=== PATIENT | female | born 1945 | race Caucasian/White ===

== ENCOUNTER 2017-09-16 13:10 | Emergency (ER) | payer OTHER ==
[2017-09-16 13:42] VITALS: BP 134/66
[2017-09-16] MEDS ORDERED: DOXYcycline CAP(*) 100 MG PO ONE (14:00)
--- NOTE | 2017-09-16 14:07 | UC ---
Skin Complaint HPI - HPI Summary HPI Summary: 72 yo WF c/o tick sascha bite on right calf 2 days ago, noted on her skin less than 1/2 hr ago and took it out with a tweezer, and c/o mild erythema around the site of tick bite. Jamarcusies santiago - History of Current Complaint Chief Complaint: UCSkin Time Seen by Provider: 09/16/17 13:39 Stated Complaint: RIGHT LEG SKIN COMPLAINT Hx Obtained From: Patient Onset/Duration: Sudden Onset Skin Exposure Onset/Duration: Days Ago Onset Severity: Mild Pain Intensity: 0 Aggravating Factor(s): Nothing Alleviating Factor(s): Nothing Related History: Insect Bite/Sting - Allergy/Home Medications Allergies/Adverse Reactions: Allergies Allergy/AdvReac Type Severity Reaction Status Date / Time No Known Allergies Allergy Verified 09/16/17 13:39 Home Medications: Home Medications Aspirin [Adult Aspirin] 81 mg PO DAILY 09/16/17 [History Confirmed 09/16/17] Calcium Carbonate [Calcium] 500 mg PO DAILY 09/16/17 [History Confirmed 09/16/17 ] Multivit-Min/Folic Acid/Vit K1 [Multi For Her 50 Plus Softgel] 1 each PO DAILY 09/16/17 [History Confirmed 09/16/17] Review of Systems Constitutional: Negative Skin: Other - tick bite right calf Eyes: Negative ENT: Negative Respiratory: Negative Cardiovascular: Negative Gastrointestinal: Negative Genitourinary: Negative Motor: Negative Neurovascular: Negative Musculoskeletal: Negative Neurological: Negative Psychological: Negative All Other Systems Reviewed And Are Negative: Yes PMH/Surg Hx/FS Hx/Imm Hx Previously Healthy: Yes - Surgical History Surgery Procedure, Year, and Place: TONSILLECTOMY. LUMPECTOMY, LEFT ARM. RIGHT BREAST BX-BENIGN - Social History Alcohol Use: Occasionally Substance Use Type: None Smoking Status (MU): Never Smoked Tobacco Physical Exam Triage Information Reviewed: Yes Vital Signs: Initial Vital Signs Temp 37.1 C 09/16/17 13:33 Pulse 81 09/16/17 13:33 Resp 17 09/16/17 13:33 BP 134/66 09/16/17 13:33 Pulse Ox 100 09/16/17 13:33 Eye Exam: Normal ENT Exam: Normal Dental Exam: Normal Neck exam: Normal Neck: Positive: 1 Respiratory Exam: Normal Cardiovascular Exam: Normal Abdominal Exam: Normal Musculoskeletal Exam: Normal Neurological Exam: Normal Psychological Exam: Normal Skin: Positive: significant lesion(s) - tick bite, no insect parts left in skin , small 0.5cm eyrthema surrounding tick bite Course/Dx - Course Course Of Treatment: pt not from this arrea and is concerned about Lyme disease and infection. Requests prophylactic dose of PO doxy which was administered in UC - Diagnoses Provider Diagnoses: tick bite Discharge - Sign-Out/Discharge Documenting (check all that apply): Discharge/Admit/Transfer - Discharge Plan Condition: Improved Disposition: HOME Patient Education Materials: Tick Bite (ED) Referrals: Non Staff,Doctor [Primary Care Provider] - Additional Instructions: follow up with your PCP - Billing Disposition and Condition Condition: IMPROVED Disposition: HOME
== END 2017-09-16 14:05 | disposition home or self-care (01) ==
LOC: UCCORT 13:10
DX: S80.861A Insect bite (nonvenomous), right lower leg, initial encounter (principal); W57.XXXA Bitten or stung by nonvenomous insect and other nonvenomous arthropods, initial encounter; Y93.9 Activity, unspecified; Y92.9 Unspecified place or not applicable
CPT/HCPCS: 99202; A9270-GY; G0463